=== PATIENT | female | born 1980 | race Caucasian/White ===

== ENCOUNTER 2018-06-02 16:10 | Outpatient (CLI) | payer OTHER | END 2018-06-02 16:11 | disposition critical access hospital (66) | LOC: EMS 16:10 | PROVIDERS: ATTEND Surgery | DX: M54.5 Low back pain (principal); V80.010A Animal-rider injured by fall from or being thrown from horse in noncollision accident, initial encounter; Y93.52 Activity, horseback riding; Y92.410 Unspecified street and highway as the place of occurrence of the external cause | CPT/HCPCS: A0425; A0429 ==